=== PATIENT | male | born 1960 | race Hispanic/Latino ===

== ENCOUNTER 2016-09-02 08:52 | Day surgery (SDC) | payer MEDICAID, OTHER ==
[~2016-09-02] VITALS: Ht 175.3 cm; Wt 108.8 kg
[2016-09-02] VITALS (10 sets, daily range): BP systolic 118–138; BP diastolic 79–94; PULSE 62–80; RESP 10–18; O2SAT 94–100
[~2016-09-02 08:52] MED LIST: ASPI325T32 PO; CeFAZolin Inj 2 GM in IV Premix 1 EACH IV ONE; Lactated Ringer's 1,000 ML IV SCH; lisinopril; lovastatin
[2016-09-02] MEDS ORDERED: Glycopyrrolate 0.2 MG/ML 1mL Inj ONE (08:53)
[2016-09-02] MEDS ORDERED: EPHEDrine/NS 5 mg/mL 5 mL Syringe ONE (08:53)
[2016-09-02] MEDS ORDERED: Propofol 10,000 mCg/mL 20 mL Inj ONE (08:53)
[2016-09-02] MEDS ORDERED: Ondansetron 2 mg/mL 2 mL Inj ONE (08:53)
[2016-09-02] MEDS ORDERED: Dexamethasone 4 mg/mL Inj ONE (08:53)
[2016-09-02] MEDS ORDERED: fentaNYL-PF 50 mCg/mL 2 mL Inj ONE (08:53)
[2016-09-02] MEDS: Lactated Ringer's 1,000 ML IV SCH ×2 (08:58→10:27)
--- NOTE | 2016-09-02 09:26 | PCM.HPANE ---
Patient Data Surgeon Admitting Provider: Attending Provider:Adán Mishra DO Primary Care Physician:Ambreen Castro MD Other Provider:Candi Francoingham Anesthesia Reason for Visit Right Shoulder Rotator Cuff Tear, Impingement Synd Ht/WT & BMI Height (Feet): 5 Height (Inches): 9 Weight (Kilograms): 108.8 Body Mass Index 35.00 Allergies Coded Allergies: No Known Allergies (Unverified , 08/30/16) Past Anesthesia History Anesthesia History: Denies:: Anesthesia Reactions Diabetes History Hx Diabetes?: No MRSA MRSA: No Medications Hypertension Medication: Yes Home Meds Incl Beta Vaishnavi: No Reported Medications [lovastatin] unknown No Conflict Check1 Tab DAILY 08/30/16 [lisinopril] unknown No Conflict Check40 Mg DAILY 08/30/16 History History of ENT Problems?: No HEENT History: Denies:: Abnormal Airway Cataracts Difficult Intubation Dysphagia Glaucoma Hearing Problem Sinus Problem TMJ Denture Type: Partial- Upper Teeth Condition: Within Normal Limits Hx of Heart Problems?: Yes Cardiovascular History: Positive for:: Hypertension Hx of Respiratory Problem?: No Respiratory History: Denies:: Asthma COPD Emphysema Oxygen Administration Pneumonia Tuberculosis Use of C-PAP Machine Use of Inhalers / NEBS Hx Neurologic Problems?: No Neurological History: Denies:: CVA Headaches Multiple Sclerosis Parkinson's Disease Seizures TIA Hx of GI Problems?: No Hx of Problems?: No Male Hx: Denies:: Prostate Problems Skin History: Denies:: History Skin Disorders? Pressure Ulcers Hx Musculoskeletal Problems?: Yes Musculoskeletal History: Positive for:: Musculoskeletal Trauma (right shoulder current admission problem) Osteoarthritis Denies:: Fibromyalgia Hx of Psycho/Social Problems?: No Psycho Social History: Denies:: Anxiety Hx Depression Hx Surgeries?: Yes (left hand ORIF, left foot ORIF, right ankle ORIF, CTR, trigger finger) Hx Any Other Health Problems?: Yes Other History: Denies:: Cancer Thyroid Disease Hx Diabetes: No Hx Substance Use: NoHave You Smoked inLast 12 mo: No Stop/Bang Treated for Sleep Apnea?: No Do You Have a CPAP Machine?: No S-Snoring: Do You Snore Loudly: No T-Tired: feel tired, fatigued: No O-Obsered: Observed not breath: No P-Blood Pressure: treated: Yes B- Body Mass Index > 35 kg/m2: Yes A- Age over 50: Yes N- Neck Large Circumference: Yes G- Gender Male: Yes EDITH Total Score: 5 EDITH Risk Assessment: Low Risk, <3 Yes Risk Assessment Category Category 1A: Patient has history of documented sleep apnea, and HAS NOT received any narcotic, sedative or anesthesia administration during this stay. Category 1B: Patient has history of documented sleep apnea, and HAS received any narcotic , sedative or anesthesia administration during this stay Category 2: Patient has SUSPECTED Obstructive Sleep Apnea, and HAS received any narcotic , sedative or anesthesia administration during this stay. Category 3: Patient has SUSPECTED Obstructive Sleep Apnea and HAS NOT received narcotic, sedative or anesthesia administration during this stay. Category 4: Outpatient in Procedural Areas with known sleep apnea or who screen positive for High Risk via the STOP/BANG questionnaire. Exam Exam Vital Signs Vital Signs Date Time Temp Pulse Resp B/P Pulse Ox O2 Delivery O2 Flow Rate FiO2 09/02/16 09:07 36 62 16 125/94 97 Room Air General Appearance: Oriented X3 HEENT/AIRWAY: MP 2 Lungs: Normal Air Movement Heart: Regular Rate/Rhythm Meds/Labs/Diagnostics Admission Meds Current Medications Lactated Ringer's (Lr) 1,000 ml @ 10 mls/hr Q24H IV Last administered on t 08:58; Start 09/02/16 at 05:00; Stop 09/06/16 at 08:59 Plan Impression Patient chart reviewed, patient interviewed and anesthestic plan with risks, benefits, and alternatives discussed, and informed consent obtained. ASA Physical Status: ASA2 Mod Systemic Disease Anesthetic Plan: GA, Regional Block Bene/Risks/Altern/Consents: Yes HP Complete Prior to Induction: Yes Lloyd Vidal MD Sep 02, 2016 09:26
[2016-09-02] MEDS ORDERED: oxyCODONE-Acetamin 5-325 mg Tablet PO PRN (10:20)
[2016-09-02] MEDS ORDERED: EPHEDrine Sulfate 50 mg/mL Inj IVPUSH PRN (11:00)
[2016-09-02] MEDS ORDERED: Labetalol 5 mg/mL 4 mL Inj IV PRN (11:00)
[2016-09-02] MEDS ORDERED: fentaNYL-PF 50 mCg/mL 2 mL Inj IVPUSH PRN (11:00)
[2016-09-02] MEDS ORDERED: Lactated Ringer's 1,000 ML IV SCH (11:00)
[2016-09-02] MEDS ORDERED: Ondansetron 2 mg/mL 2 mL Inj IVPUSH PRN (11:00)
[2016-09-02] MEDS ORDERED: Phenylephrine 10,000 mCg/mL Inj IVPUSH PRN (11:00)
[2016-09-02] MEDS ORDERED: hydrALAZINE 20 mg/mL Inj IVPUSH PRN (11:00)
[2016-09-02] MEDS ORDERED: Lactated Ringer's 500 ML IV PRN (11:00)
[2016-09-02] MEDS ORDERED: MetoCLOpramide 5 mg/mL 2 mL Inj IVPUSH PRN (11:00)
[2016-09-02] MEDS ORDERED: HYDROmorphone 1 mg/mL Inj IVPUSH PRN (11:00)
[2016-09-02] MEDS ORDERED: Dexamethasone 4 mg/mL Inj IVPUSH PRN (11:00)
[2016-09-02] MEDS ORDERED: Atropine 0.4 mg/mL Inj IVPUSH PRN (11:00)
[2016-09-02] MEDS ORDERED: Lidocaine 1%-Epi 1:100,000 20 mL Inj INJ ONE (11:15)
[2016-09-02] MEDS ORDERED: Lactated Ringer's 1,000 ML IV ONE (12:11)
[2016-09-02] MEDS ORDERED: HYDROmorphone 0.5 mg/0.5 mL iSecure Syringe ONE (13:11)
--- NOTE | 2016-09-02 13:27 | PCM.ANEP1 ---
Post Anesthesia Phase 1 PACU Phase 1 Assessment Vital Signs Vital Signs Date Time Temp Pulse Resp B/P Pulse Ox O2 Delivery O2 Flow Rate FiO2 09/02/16 13:15 76 10 127/91 95 Room Air 09/02/16 13:00 74 14 124/89 95 Room Air 09/02/16 12:55 78 15 118/80 100 Simple Mask 7 09/02/16 12:50 73 15 135/93 100 Simple Mask 7 09/02/16 12:45 70 16 118/79 100 Simple Mask 7 09/02/16 12:40 36 80 18 130/90 100 Simple Mask 7 09/02/16 09:07 36 62 16 125/94 97 Room Air Anesthetic Administered: GA Level of Alertness: Sleepy, easy to arouse CAPONE's with Equal Strength: No (PNB) Pain: No Nausea or Vomiting: No Cardiovascular Function and Hy: Yes Oxygen Delivery: Simple Mask Lungs: Normal Air Movement Complications: No Follow up Care: No Patient Instructions Provided: Yes Son Carter DO Sep 02, 2016 13:27
--- NOTE | 2016-09-02 13:28 | PCM.HPANE ---
Patient Data Surgeon Admitting Provider: Attending Provider:Adán Mishra DO Primary Care Physician:Ambreen Castro MD Other Provider:Candi Francoingham Anesthesia Reason for Visit Right Shoulder Rotator Cuff Tear, Impingement Synd Ht/WT & BMI Height (Feet): 5 Height (Inches): 9 Weight (Kilograms): 108.8 Body Mass Index 35.00 Allergies Coded Allergies: No Known Allergies (Unverified , 08/30/16) Past Anesthesia History Anesthesia History: Denies:: Anesthesia Reactions Diabetes History Hx Diabetes?: No MRSA MRSA: No Medications Hypertension Medication: Yes Home Meds Incl Beta Vaishnavi: No Reported Medications [lovastatin] unknown No Conflict Check1 Tab DAILY 08/30/16 [lisinopril] unknown No Conflict Check40 Mg DAILY 08/30/16 Aspirin 325 Mg [id number] Mg PO DAILY #1 BOTTLE 08/30/16 History History of ENT Problems?: No HEENT History: Denies:: Abnormal Airway Cataracts Difficult Intubation Dysphagia Glaucoma Hearing Problem Sinus Problem TMJ Denture Type: Full- Upper Full- Lower Teeth Condition: Within Normal Limits Hx of Heart Problems?: Yes Cardiovascular History: Positive for:: Hypertension Hx of Respiratory Problem?: No Respiratory History: Denies:: Asthma COPD Emphysema Oxygen Administration Pneumonia Tuberculosis Use of C-PAP Machine Use of Inhalers / NEBS Hx Neurologic Problems?: No Neurological History: Denies:: CVA Headaches Multiple Sclerosis Parkinson's Disease Seizures TIA Hx of GI Problems?: No Hx of Problems?: No Male Hx: Denies:: Prostate Problems Skin History: Denies:: History Skin Disorders? Pressure Ulcers Hx Musculoskeletal Problems?: Yes Musculoskeletal History: Positive for:: Musculoskeletal Trauma (right shoulder current admission problem) Osteoarthritis Denies:: Fibromyalgia Hx of Psycho/Social Problems?: No Psycho Social History: Denies:: Anxiety Hx Depression Hx Surgeries?: Yes (left hand ORIF, left foot ORIF, right ankle ORIF, CTR, trigger finger) Hx Any Other Health Problems?: Yes Other History: Denies:: Cancer Thyroid Disease Hx Diabetes: No Have You Smoked inLast 12 mo: No Stop/Bang S-Snoring: Do You Snore Loudly: No T-Tired: feel tired, fatigued: No O-Obsered: Observed not breath: No P-Blood Pressure: treated: Yes B- Body Mass Index > 35 kg/m2: Yes A- Age over 50: Yes N- Neck Large Circumference: Yes G- Gender Male: Yes EDITH Total Score: 5 Risk Assessment Category Category 1A: Patient has history of documented sleep apnea, and HAS NOT received any narcotic, sedative or anesthesia administration during this stay. Category 1B: Patient has history of documented sleep apnea, and HAS received any narcotic , sedative or anesthesia administration during this stay Category 2: Patient has SUSPECTED Obstructive Sleep Apnea, and HAS received any narcotic , sedative or anesthesia administration during this stay. Category 3: Patient has SUSPECTED Obstructive Sleep Apnea and HAS NOT received narcotic, sedative or anesthesia administration during this stay. Category 4: Outpatient in Procedural Areas with known sleep apnea or who screen positive for High Risk via the STOP/BANG questionnaire. Exam Exam Vital Signs Vital Signs Date Time Temp Pulse Resp B/P Pulse Ox O2 Delivery O2 Flow Rate FiO2 09/02/16 09:07 36 62 16 125/94 97 Room Air General Appearance: Alert, Oriented X3, Cooperative HEENT/AIRWAY: MP 3 Lungs: Clear to Auscultation Heart: Exam Unremarkable Meds/Labs/Diagnostics Admission Meds Current Medications Lactated Ringer's (Lr) 1,000 ml @ 10 mls/hr Q24H IV Last administered on t 08:58; Start 09/02/16 at 05:00; Stop 09/06/16 at 08:59 Plan Impression Patient chart reviewed, patient interviewed and anesthestic plan with risks, benefits, and alternatives discussed, and informed consent obtained. ASA Physical Status: ASA2 Mod Systemic Disease Anesthetic Plan: GA, Regional Block Bene/Risks/Altern/Consents: Yes HP Complete Prior to Induction: Yes Son Carter DO Sep 02, 2016 09:25
--- NOTE | 2016-09-02 22:47 | OP ---
[address] [address] OPERATIVE REPORT PATIENT: PRACHI STOKES : 1960 MR#: [id number] ADMIT: 09/02/2016 JOB ID: [id number] DATE OF SURGERY: 09/02/2016 PREOPERATIVE DIAGNOSIS(ES): 1. Right shoulder rotator cuff tear. 2. Right shoulder impingement syndrome. 3. Right shoulder bicipital tendinopathy. 4. Right shoulder acromioclavicular arthritis. POSTOPERATIVE DIAGNOSIS(ES): 1. Right shoulder high-grade partial thickness tear to the rotator cuff involving the anterior fibers of supraspinatus. 2. Right shoulder impingement syndrome. 3. Right shoulder type 1 superior labral tear from anterior to posterior (SLAP) tear. 4. Right shoulder acromioclavicular arthritis. PROCEDURES: 1. Right shoulder arthroscopy with rotator cuff repair. 2. Right shoulder arthroscopy with subacromial decompression and acromioplasty. 3. Right shoulder arthroscopy and distal clavicle excision. 4. Right shoulder arthroscopy with limited debridement of the labrum. SURGEON: Adán Mishra D.O. ASSISTANTS: Ozzy Blake PA-C. Telecommunication Lines Repairer, Ozzy Blake PA-C was necessary for help with manipulation of the intra-articular equipment, including the camera as well as for primary closure at the conclusion of the case. ANESTHESIA: General. HISTORY: The patient is a pleasant 56-year-old male with a longstanding history of right shoulder pain. He failed conservative treatment with therapy as well as anti-inflammatories, continued to have pain and presented with an MRI that demonstrated a tear to the anterior fibers of the supraspinatus. There was also evidence of impingement syndrome, acromioclavicular arthritis and bicipital tendinopathy. I discussed with the patient the risks, benefits, and indications to proceed with a right shoulder arthroscopy with rotator cuff repair, subacromial decompression, distal clavicle excision and possible open biceps tenodesis. He understood the risks include, but not limited to, neurovascular injury, tendon injury, infection, failure of fixation, stiffness, persistent pain all of which may require further intervention. The patient had all questions answered. Consent was signed and placed in the chart. PROCEDURE IN DETAIL: The patient was brought to the operative suite and placed supine on the operating room table. Surgical time-out was performed. Everyone in the room was in agreement. After appropriate anesthesia was obtained, the patient was placed in the beach chair position with all prominences well padded. The right upper extremity was then prepped and draped in sterile fashion. The right upper extremity was then placed into arthroscopic arm honeycutt. A standard posterior viewing portal was developed in typical fashion, the camera introduced in the glenohumeral joint. On gross observation, there was fraying of the anterior-superior labrum as well as some hypertrophic synovitis. An anterior working portal was then developed in a typical fashion, the shaver introduced to perform a debridement of the hypertrophic synovium as well as the superior-anterior aspect of the labrum. The labrum was further probed and demonstrated only evidence of the type 1 SLAP tear that was debrided, but was not detached from the superior aspect of the glenoid. The humeral head and the glenoid were free of any chondromalacia. The undersurface of the rotator cuff was also found to be intact with only some mild thinning to the anterior fibers which was marked with a Prolene suture. Next, the biceps tendon was brought within the joint. There was some mild hyperemia but no significant tendinopathy appreciated. The camera was then introduced into the subacromial space. There was significant hypertrophic bursa. Lateral working portal was then created. A shaver introduced to perform an extensive bursectomy to allow for visualization of the bursal surface of the rotator cuff. The rotator cuff was then probed, starting posteriorly and working the way anteriorly to the position of the Jaramillo suture that marked the anterior fibers of the supraspinatus. There was a small tear that was a high-grade partial thickness tear to the anterior fibers of the supraspinatus. This tear was completed and the greater tuberosity footprint then prepared for application of an anchor for a single row rotator cuff repair. A 4.5 mm corkscrew Arthrex anchor was then placed just lateral to the humeral articular surface at the greater tuberosity footprint. The four limbs of the suture were then shuttled through the anterior fibers of the supraspinatus and tied with sliding knots. Excellent single row repair was achieved. Next, the undersurface of the acromion was further delineated with a surface electrocautery wand. There was an anterior hook to the acromion. A bur next was utilized to perform an acromioplasty until a smooth surface was created and allowing for improved room within the subacromial space. Next, attention was turned towards the distal clavicle through an anterior portal. First, electrocautery was utilized to delineate the edges of the distal clavicle and a bur next was utilized to perform a distal clavicle excision of approximately 8-10 mm in width. The arthroscopic equipment was then removed from the joint and the portals closed with 4-0 nylon in a simple interrupted fashion. The patient was then placed in a bulky soft dressing and into a shoulder immobilizer. ESTIMATED BLOOD LOSS: Less than 25 cc. COMPLICATIONS: None. DISPOSITION: The patient tolerated the procedure well. Anesthesia was reversed. The patient was transferred back to recovery. IMPLANTS: A single Arthrex 4.5 mm corkscrew anchor. POSTOPERATIVE PLAN: The patient will follow up in the office in two weeks. We will remove the patient's sutures at that time. He will be in the shoulder immobilizer for six weeks, and will list him in formal physical therapy by four weeks postop to start working on gentle passive range of motion.
== END 2016-09-02 23:59 | disposition home or self-care (01) ==
LOC: SAS 08:52
PROVIDERS: ATTEND Orthopaedic Surgery
DX: M75.121 Complete rotator cuff tear or rupture of right shoulder, not specified as traumatic (principal); M19.011 Primary osteoarthritis, right shoulder; M67.921 Unspecified disorder of synovium and tendon, right upper arm; M75.41 Impingement syndrome of right shoulder; R20.2 Paresthesia of skin; I10 Essential (primary) hypertension; J30.9 Allergic rhinitis, unspecified; Z87.891 Personal history of nicotine dependence; Z79.82 Long term (current) use of aspirin
CPT/HCPCS: 23430; 29824; 29826; 29827; 76942; C1713; J0171; J0690; J1100; J1170; J1885; J2405; J3010; J7120

== ENCOUNTER 2016-11-01 10:44 | Day surgery (SDC) | payer OTHER ==
[~2016-11-01] VITALS: Ht 175.3 cm; Wt 108.9 kg
[~2016-11-01 10:44] MED LIST changes: +0.9% Sodium Chloride 1,000 ML IV SCH; +CHOL500050 PO; -CeFAZolin Inj 2 GM in IV Premix 1 EACH IV ONE; -Lactated Ringer's 1,000 ML IV SCH; +Sodium Chloride LOK Flush 10 mL Syringe IV PRN; +fentaNYL-PF 50 mCg/mL 2 mL Inj IVPUSH PRN
[2016-11-01 11:19] VITALS: BP 118/75; RESP 14; O2SAT 98
[2016-11-01 12:13] VITALS: BP 105/71; PULSE 55; RESP 16; O2SAT 94
[2016-11-01 12:33] VITALS: BP 104/70; PULSE 54; RESP 16; O2SAT 97
--- NOTE | 2016-11-01 19:46 | ENDO ---
[address] [address] ENDOSCOPY PROCEDURE PATIENT: PRACHI SILVA : 1960 MR#: [id number] ADMIT: 11/01/2016 JOB ID: [id number] CORRECTED REPORT: DATE: 11/01/2016 PRIMARY PROVIDER: Ambreen Castro MD PROCEDURE: Colonoscopy. INDICATIONS: A 56-year-old male with longstanding (years) intermittent red blood per rectum. He additionally had a fecal "occult" blood test that was positive. Colonoscopy is therefore pursued. EQUIPMENT: [employer]-H180AL. SEDATION: 4 mg Versed, 100 mcg fentanyl. COMPLICATIONS: None identified. Bowel prep adequate. PROCEDURE INFORMATION: After the risks and benefits were explained, written and verbal informed consent was obtained, the patient was brought into the endoscopy suite and placed into the left lateral decubitus position. Sedation was achieved using the above-stated medications with the addition of oxygen via nasal cannula. A digital rectal examination was accomplished. Moderate internal hemorrhoids were noted. The scope was introduced into the rectum and advanced under direct visualization to the level of the cecum, as identified by the appendiceal orifice and ileocecal valve. The scope was slowly withdrawn to carefully examine the mucosa for any defects or lesions. Retroflexed views were avoided in the rectum. Multiple direct views were made through the dentate line for exclusion of pathology. The colon was decompressed, the scope removed from the patient who tolerated the procedure well. FINDINGS: No significant polyps, mass lesions, or inflammatory features identified throughout. The patient had moderately engorged internal hemorrhoids with some superficial vascularity. No bleeding identified during the procedure. ENDOSCOPIC DIAGNOSIS: 1. Internal hemorrhoids. 2. Otherwise visually unremarkable colonoscopy to cecum. RECOMMENDATIONS: 1. Repeat colonoscopy, 10 years' time, sooner should symptoms warrant. 2. The patient is encouraged to engage in some intermittent warm Epsom salt baths in the evening over the next week in an attempt to shrivel the hemorrhoidal engorgement. Should this be ineffective, then intermittent preparation H suppository therapy or preparation H cooling gel as needed following bowel movements would be appropriate as well. 3. Follow up GI p.r.n. 4. Follow up in primary care clinic. The patient had asymptomatic trigeminy noted on ECG today in endoscopy. Corrected by GEOVANNA 11/08/2016 at 10:07am DOS.
== END 2016-11-01 23:59 | disposition home or self-care (01) ==
LOC: END 10:44
PROVIDERS: ATTEND Internal Medicine Gastroenterology
DX: K64.8 Other hemorrhoids (principal); R19.5 Other fecal abnormalities; I10 Essential (primary) hypertension; E78.5 Hyperlipidemia, unspecified; R73.03 Prediabetes; G89.29 Other chronic pain; E66.9 Obesity, unspecified; M54.2 Cervicalgia; Z79.82 Long term (current) use of aspirin; Z68.36 Body mass index [BMI] 36.0-36.9, adult
CPT/HCPCS: 45378; 93005; 99152; 99153; J2250; J3010; J7030